=== PATIENT | female | born 1960 | race Caucasian/White ===

== ENCOUNTER 2023-05-31 20:53 | Emergency (ER) | payer MEDICAID ==
[~2023-05-31] VITALS: Ht 154.9 cm; Wt 54.0 kg
[2023-05-31 21:54] VITALS: O2SAT 100
[2023-05-31] MEDS ORDERED: FLUORESCEIN SODIUM 1MG/STRIP LEFTEYE ONE (22:00)
[2023-05-31] MEDS ORDERED: TETRACAINE 0.5% OPHTH DROPS 4ML LEFTEYE ONE (22:00)
[2023-05-31 23:07] VITALS: BP 159/48; PULSE 65; RESP 14; TEMP 98.9
== END 2023-05-31 23:21 | disposition home or self-care (01) ==
LOC: ER 20:53
DX: H11.32 Conjunctival hemorrhage, left eye (principal); E11.9 Type 2 diabetes mellitus without complications; I10 Essential (primary) hypertension; Z98.890 Other specified postprocedural states
CPT/HCPCS: 99283